=== PATIENT | female | born 1990 | race Caucasian/White ===

== ENCOUNTER 2017-12-17 01:01 | Inpatient (IN) | payer OTHER ==
[~2017-12-17] VITALS: Ht 180.3 cm; Wt 123.0 kg
[2017-12-17] MEDS ORDERED: LACTATED RINGERS 1,000 ML IV SCH ×2 (01:22→08:25)
[2017-12-17] MEDS ORDERED: LACTATED RINGERS 1,000 ML IVBOLUS ONE (01:30)
[2017-12-17] MEDS ORDERED: SODIUM CITRATE/CITRIC ACID 30 ML UDC PO ONE (01:30)
[2017-12-17] MEDS ORDERED: METOCLOPRAMIDE 5 MG/ML, 2ML IV ONE (01:30)
[2017-12-17] MEDS ORDERED: SODIUM CITRATE/CITRIC ACID 30 ML UDC ONE (01:44)
[2017-12-17] MEDS ORDERED: NEWBORN KIT ONE (01:44)
[2017-12-17] MEDS ORDERED: METOCLOPRAMIDE 5 MG/ML, 2ML ONE (01:45)
[2017-12-17] MEDS ORDERED: OXYTOCIN 30U/ 0.9% NaCL 500ML 500 ML ONE (01:45)
[2017-12-17 02:03] LABS: ALANINE AMINOTRANSFERASE 20 U/L (12-78); ALBUMIN 2.2 g/dL (3.4-5.0); ANION GAP 9 mmol/L (5-15); CALCIUM 8.1 mg/dL (8.5-10.1); CHLORIDE 110 mmol/L (98-107); CREATININE 0.59 mg/dL (0.55-1.02)
[2017-12-17 02:05] LABS: ALKALINE PHOSPHATASE 124 U/L (45-117); BILIRUBIN, DIRECT < 0.1 mg/dL (0.1-0.2); BILIRUBIN,TOTAL 0.2 mg/dL (0.2-1.0); TOTAL PROTEIN 6.1 g/dL (6.4-8.2)
[2017-12-17 02:10] LABS: BASOPHILS # (AUTO) 0.02 x10^3/uL (0-0.1); BASOPHILS % (AUTO) 0 % (0-1); EOSINOPHILS # (AUTO) 0.09 x10^3/uL (0-0.4); EOSINOPHILS % (AUTO) 1 % (1-7); LYMPHOCYTES # (AUTO) 1.47 x10^3/uL (1-3.4); LYMPHOCYTES % (AUTO) 16 % (22-44); MD NO; MEAN CORPUSCULAR HEMOGLOBIN 28.3 pg (27.0-34.8); MEAN CORPUSCULAR VOLUME 85.8 fL (80-100); MEAN PLATELET VOLUME 8.6 fL (7.4-10.4); MONOCYTES # (AUTO) 0.97 x10^3/uL (0.2-0.8); MONOCYTES % (AUTO) 11 % (2-9); NEUTROPHILS # (AUTO) 6.67 x10^3/uL (1.8-6.8); NEUTROPHILS % (AUTO) 72 % (42-75); PLATELET COUNT 298 x10^3/uL (130-400); RED BLOOD COUNT 4.29 x10^6/uL (3.82-5.3)
[2017-12-17 02:40] LABS: MICROSCOPIC INDICATED
[2017-12-17] MEDS ORDERED: DEXAMETHASONE 4 MG/ML, 1ML ONE (07:08)
[2017-12-17] MEDS ORDERED: OXYTOCIN 10 UNITS/ML, 1ML ONE (07:08)
[2017-12-17] MEDS ORDERED: FENTANYL PF 100 MCG/2ML ONE (07:08)
[2017-12-17] MEDS ORDERED: KETOROLAC 30 MG/1 ML ONE (07:08)
[2017-12-17] MEDS ORDERED: PHENYLEPHRINE 10 MG/ML ONE (07:08)
[2017-12-17] MEDS ORDERED: EPHEDRINE 50 MG/ML, 1ML ONE (07:08)
[2017-12-17] MEDS ORDERED: CEFAZOLIN 1,000 MG ONE (07:08)
[2017-12-17] MEDS ORDERED: ONDANSETRON 2MG/ML, 2ML ONE (07:08)
[2017-12-17] MEDS ORDERED: MIDAZOLAM 1 MG/ML, 2ML IV PRN (07:30)
[2017-12-17] MEDS ORDERED: OXYcodone 5 MG/5 ML ORAL.SOL UDC PO PRN (07:30)
[2017-12-17] MEDS ORDERED: hydrALAzine 20 MG/ML, 1ML IV PRN (07:30)
[2017-12-17] MEDS ORDERED: ONDANSETRON 2MG/ML, 2ML IVPush PRN (07:30)
[2017-12-17] MEDS ORDERED: MEPERIDINE/PF 25MG/0.5ML IVPush PRN (07:30)
[2017-12-17] MEDS ORDERED: ALBUTEROL SULFATE 2.5 MG/3 ML NPPB PRN (07:30)
[2017-12-17] MEDS ORDERED: PROMETHAZINE 25 MG/ML, 1ML IV PRN (07:30)
[2017-12-17] MEDS ORDERED: LABETALOL 5MG/ML, 20ML IV PRN (07:30)
[2017-12-17] MEDS ORDERED: FENTANYL PF 100 MCG/2ML IV PRN (07:30)
[2017-12-17] MEDS ORDERED: HYDROmorphone 1 MG/ML, 1ML IV PRN (07:30)
[2017-12-17] MEDS ORDERED: HYDROcodone/APAP 7.5-325MG/15ML UDC PO PRN (07:30)
[2017-12-17] MEDS: OXYTOCIN 30U/ 0.9% NaCL 500ML 500 ML IV SCH ×7 (08:25→21:22)
[2017-12-17] MEDS: LACTATED RINGERS 1,000 ML IV SCH ×6 (08:25→18:25)
[2017-12-17] MEDS ORDERED: CALCIUM CARBONATE 500 MG TAB.CHEW PO PRN ×2 (08:30)
[2017-12-17] MEDS ORDERED: OXYcodone/APAP 5/325MG TABLET PO PRN ×4 (08:30)
[2017-12-17] MEDS ORDERED: METOCLOPRAMIDE 5 MG/ML, 2ML IV PRN ×2 (08:30)
[2017-12-17] MEDS ORDERED: MEPERIDINE/PF 25MG/0.5ML IM PRN (08:30)
[2017-12-17] MEDS ORDERED: IBUPROFEN 600 MG TABLET PO PRN ×2 (08:30)
[2017-12-17] MEDS ORDERED: ONDANSETRON 2MG/ML, 2ML IV PRN ×2 (08:30)
[2017-12-17] MEDS ORDERED: ACETAMINOPHEN 325 MG TABLET PO PRN ×4 (08:30)
[2017-12-17] MEDS ORDERED: MISOPROSTOL 200 MCG TABLET PR PRN ×2 (08:30)
[2017-12-17] MEDS ORDERED: DOCUSATE 100 MG CAPSULE PO PRN ×2 (08:30)
[2017-12-17] MEDS ORDERED: morphine SULFATE 10 MG/ML, 1ML IVPush PRN (08:30)
[2017-12-17] MEDS: PRENATAL VIT/IRON/FA 1 EACH TABLET PO SCH (09:00)
[2017-12-17] MEDS ORDERED: PRENATAL VIT/IRON/FA 1 EACH TABLET PO SCH (09:00)
[2017-12-17 10:15] VITALS: BP 114/73
[2017-12-17 12:10] VITALS: BP 110/66
[2017-12-17] MEDS: KETOROLAC 30 MG/1 ML IV PRN ×2 (14:42→21:23)
[2017-12-17 16:08] LABS: MEAN CORPUSCULAR HEMOGLOBIN 28.5 pg (27.0-34.8); MEAN CORPUSCULAR HGB CONC 32.8 g/dL (32.4-35.8); MEAN CORPUSCULAR VOLUME 86.7 fL (80-100); MEAN PLATELET VOLUME 8.4 fL (7.4-10.4); PLATELET COUNT 279 x10^3/uL (130-400); RED BLOOD COUNT 4.16 x10^6/uL (3.82-5.3); RED CELL DISTRIBUTION WIDTH 14.7 % (9.6-15.2)
[2017-12-17 16:15] VITALS: BP 111/72
[2017-12-17 16:26] LABS: BASOPHILS # (AUTO) 0.01 x10^3/uL (0-0.1); BASOPHILS % (AUTO) 0 % (0-1); EOSINOPHILS % (AUTO) 0 % (1-7); LYMPHOCYTES # (AUTO) 1.09 x10^3/uL (1-3.4); LYMPHOCYTES % (AUTO) 7 % (22-44); MD SCAN; MONOCYTES # (AUTO) 0.82 x10^3/uL (0.2-0.8); MONOCYTES % (AUTO) 5 % (2-9); NEUTROPHILS % (AUTO) 88 % (42-75)
[2017-12-17 20:10] VITALS: BP 112/77
[2017-12-18] MEDS: LACTATED RINGERS 1,000 ML IV SCH ×3 (00:25→04:25)
[2017-12-18 00:30] VITALS: BP 120/84
[2017-12-18] MEDS: KETOROLAC 30 MG/1 ML IV PRN (03:29)
[2017-12-18] MEDS: OXYTOCIN 30U/ 0.9% NaCL 500ML 500 ML IV SCH ×2 (04:25)
[2017-12-18 07:30] VITALS: BP 127/83
[2017-12-18] MEDS: PRENATAL VIT/IRON/FA 1 EACH TABLET PO SCH (09:37)
[2017-12-18] MEDS ORDERED: OXYC-302 PO (11:25)
[2017-12-18] MEDS ORDERED: IBUP-1222 PO (11:26)
== END 2017-12-18 15:31 | disposition home or self-care (01) | DRG 765 ==
LOC: LDOP 01:01 → LDIP 01:33 → 2NW 10:12
PROVIDERS: ADMIT Obstetrics & Gynecology; ATTEND Obstetrics & Gynecology
PROC: 10D00Z1 Extraction of Products of Conception, Low, Open Approach (ICD-10-PCS; principal; 2017-12-17)
DX: O34.211 Maternal care for low transverse scar from previous cesarean delivery (principal); O40.3XX0 Polyhydramnios, third trimester, not applicable or unspecified; O13.4 Gestational [pregnancy-induced] hypertension without significant proteinuria, complicating childbirth; O77.0 Labor and delivery complicated by meconium in amniotic fluid; O42.90 Premature rupture of membranes, unspecified as to length of time between rupture and onset of labor, unspecified weeks of gestation; Z37.0 Single live birth; Z3A.39 39 weeks gestation of pregnancy
CPT/HCPCS: 36415; 80053; 81001; 82248; 84550; 85025; 86850; 86900; 89060; J0690; J1100; J1885; J2405; J3010; J2370; J2590; J7120; Q0114